=== PATIENT | male | born 1995 | race Caucasian/White ===

== ENCOUNTER 2020-11-01 11:40 | Emergency (ER) | payer OTHER ==
[~2020-11-01] VITALS: Ht 190.5 cm; Wt 99.8 kg
[~2020-11-01 11:40] MED LIST: STRATTERA60 MG
[2020-11-01] MEDS ORDERED: DOXYCYCLINE 10100 MG PO (13:44)
[2020-11-01] MEDS ORDERED: APAP W/CODEINE1 TA2 PO (13:44)
[2020-11-01 14:43] VITALS: BP 139/92
== END 2020-11-01 14:44 | disposition home or self-care (01) ==
LOC: M.ERS 11:40
DX: L05.01 Pilonidal cyst with abscess (principal)